=== PATIENT | female | born 1960 | race Caucasian/White ===

== ENCOUNTER 2017-01-29 15:08 | Observation (INO) | payer MEDICARE ==
[~2017-01-29] VITALS: Ht 165.1 cm; Wt 94.1 kg
[~2017-01-29 15:08] MED LIST: ASPI81TA44 PO; ATOR10TA PO; BYSTOLIC10 MG PO; DICY20TA30 PO; DULO30CA2 PO; LOSA1TAB17 PO; ONDA4TAB7 PO; OXYC10TA32 PO; OXYC15TA PO; PANT40TA3 PO; PREG25CA PO; TIZA4TAB PO; VENL75CA PO; VENTOLIN HFA18 GM INH
--- NOTE | 2017-01-29 15:40 | EKG ---
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
--- NOTE | 2017-01-29 16:01 | PHYS DOC ---
Past Medical History Past Medical History: Asthma, COPD, Depression, GERD, High Cholesterol, Hypertension, [place], Other Additional Past Medical Histor: colitis; chronic pain, renetta Past Surgical History: Cholecystectomy, Other Additional Past Surgical Histo: skin grafts Alcohol Use: Occasionally Drug Use: None Adult General Chief Complaint Chief Complaint: SYNCOPE HPI HPI Patient is a 56 year old female presents to the emergency department by POV. Family at bedside states she had told them that she was tired. They state she went and laid down, she had slept for a few hours when she got up and was wandering around the house. Family states she was not making since. The family state that she had laid in bed and fell backwards. Patient does have a history of CAD with ID recently. Patient is very drowsy here in the emergency department. She will awake to name and then go back to sleep. Review of Systems Review of Systems Constitutional: Denies fever or chills. C/o altered mental status [] Eyes: Denies change in visual acuity, redness, or eye pain [] HENT: Denies nasal congestion or sore throat [] Respiratory: Denies cough or shortness of breath [] Cardiovascular: No additional information not addressed in HPI [] GI: Denies abdominal pain, nausea, vomiting, bloody stools or diarrhea [] : Denies dysuria or hematuria [] Musculoskeletal: Denies back pain or joint pain [] Integument: Denies rash or skin lesions [] Neurologic: Denies headache, focal weakness or sensory changes [] Endocrine: Denies polyuria or polydipsia [] Current Medications Current Medications Current Medications Medications (Trade) Dose Ordered Sig/[facility] Start Time Stop Time Status Last Admin Dose Admin Morphine Sulfate 2 mg PRN Q2HR PRN 01/29/17 18:30 01/30/17 18:29 Ondansetron HCl (Zofran) 4 mg PRN Q8HRS PRN 01/29/17 18:30 01/30/17 18:29 Allergies Allergies Allergies Coded Allergies Type Severity Reaction Last Updated Verified No Known Drug Allergies 09/18/15 No Physical Exam Physical Exam Constitutional: Well developed, well nourished, no acute distress, non-toxic appearance. Altered mental status. Patient is arousable to voice and sternal rub HENT: Normocephalic, atraumatic, bilateral external ears normal, oropharynx moist, no oral exudates, nose normal. Bilateral TM normal. Eyes: PERRLA, EOMI, conjunctiva normal, no discharge. [] Neck: Normal range of motion, no tenderness, supple, no stridor. [] Cardiovascular:Heart rate regular rhythm, no murmur [] Lungs & Thorax: Bilateral breath sounds clear to auscultation [] Abdomen: Bowel sounds normal, soft, no tenderness, no masses, no pulsatile masses. [] Skin: Warm, dry, no erythema, no rash. [] Back: No tenderness Extremities: No tenderness, no cyanosis, no clubbing, ROM intact, no edema. [] Neurologic: Alert and oriented X 3, normal motor function, normal sensory function, no focal deficits noted. [] Psychologic: Affect normal, judgement normal, mood normal. [] Current Patient Data Vital Signs Vital Signs Date Time Temp Pulse Resp B/P (MAP) Pulse Ox O2 Delivery O2 Flow Rate FiO2 01/29/17 18:16 64 17 124/56 (78) 94 01/29/17 15:46 Room Air 01/29/17 15:27 98.6 98.6 Lab Values Laboratory Tests Test 01/29/17 15:55 01/29/17 15:58 01/29/17 16:29 Glucose (Fingerstick) 89 mg/dL (70-99) Urine Collection Type Unknown Urine Color Yellow Urine Clarity Clear Urine pH 5.5 Urine Specific [place] 1.020 Urine Protein Negative mg/dL (NEG-TRACE) Urine Glucose (UA) Negative mg/dL (NEG) Urine Ketones (Stick) Negative mg/dL (NEG) Urine Blood Moderate (NEG) Urine Nitrite Negative (NEG) Urine Bilirubin Negative (NEG) Urine Urobilinogen Dipstick 0.2 mg/dL (0.2 mg/dL) Urine Leukocyte Esterase Negative (NEG) Urine RBC 6-10 /HPF (0-2) Urine WBC 1-4 /HPF (0-4) Urine Squamous Epithelial Cells Few /LPF Urine Bacteria 0 /HPF (0-FEW) Urine Hyaline Casts Moderate /HPF Urine Mucus Mod /LPF Urine Opiates Screen Pos (NEG) Urine Methadone Screen Neg (NEG) Urine Barbiturates Neg (NEG) Urine Phencyclidine Screen Neg (NEG) Urine Amphetamine/Methamphetamine Neg (NEG) Urine Benzodiazepines Screen Neg (NEG) Urine Cocaine Screen Neg (NEG) Urine Cannabinoids Screen Neg (NEG) Urine Ethyl Alcohol Pos (NEG) White Blood Count 8.7 x10^3/uL (4.0-11.0) Red Blood Count 4.09 x10^6/uL (3.50-5.40) Hemoglobin 13.2 g/dL (12.0-15.5) Hematocrit 40.2 % (36.0-47.0) Mean Corpuscular Volume 98 fL (79-100) Mean Corpuscular Hemoglobin 32 pg (25-35) Mean Corpuscular Hemoglobin Concent 33 g/dL (31-37) Red Cell Distribution Width 13.1 % (11.5-14.5) Platelet Count 204 x10^3/uL (140-400) Neutrophils (%) (Auto) 61 % (31-73) Lymphocytes (%) (Auto) 30 % (24-48) Monocytes (%) (Auto) 8 % (0-9) Eosinophils (%) (Auto) 1 % (0-3) Basophils (%) (Auto) 1 % (0-3) Neutrophils # (Auto) 5.3 x10^3uL (1.8-7.7) Lymphocytes # (Auto) 2.6 x10^3/uL (1.0-4.8) Monocytes # (Auto) 0.7 x10^3/uL (0.0-1.1) Eosinophils # (Auto) 0.0 x10^3/uL (0.0-0.7) Basophils # (Auto) 0.1 x10^3/uL (0.0-0.2) Sodium Level 146 mmol/L (136-145) H Potassium Level 4.1 mmol/L (3.5-5.1) Chloride Level 109 mmol/L (98-107) H Carbon Dioxide Level 27 mmol/L (21-32) Anion Gap 10 (6-14) Blood Urea Nitrogen 19 mg/dL (7-20) Creatinine 1.0 mg/dL (0.6-1.0) Estimated GFR (Cockcroft-Gault) 56.9 BUN/Creatinine Ratio 19 (6-20) Glucose Level 92 mg/dL (70-99) Calcium Level 9.1 mg/dL (8.5-10.1) Total Bilirubin 0.3 mg/dL (0.2-1.0) Aspartate Amino Transferase (AST) 16 U/L (15-37) Alanine Aminotransferase (ALT) 17 U/L (14-59) Alkaline Phosphatase 92 U/L (46-116) Troponin I Quantitative < 0.017 ng/mL (0.000-0.055) Total Protein 6.9 g/dL (6.4-8.2) Albumin 3.4 g/dL (3.4-5.0) Albumin/Globulin Ratio 1.0 (1.0-1.7) Ethyl Alcohol Level < 10 mg/dL (0-10) Laboratory Tests 01/29/17 16:29 Laboratory Tests 01/29/17 16:29 EKG EKG EKG completed at 1520 with SR noted HR 75 no ectopy noted, no STEMI noted oer Dr Willson[] Radiology/Procedures Radiology/Procedures [] Course & Med Decision Making Course & Med Decision Making Pertinent Labs and Imaging studies reviewed. (See chart for details) Dr Willson is aware the patient's assessment. Dr. Willson will be assisting with patient's care. [] 48-year-old female presenting to the emergency department today just generally fatigued and somnolent over the past few days. No new meds were given or initiated. Vital signs afebrile with a normal heart rate satting well on room air. Patient reports also having tremors and sleepy. On my examination the patient was somnolent. She was sleeping initially. She awoke to my voice and was oriented to person place and time. No neurologic deficits present. Patient was somnolent however. Meeting airway without difficulty. Blood work shows urine ethanol positive with blood ethanol level below 10. EKG unremarkable. Blood work unremarkable. Head CT unremarkable. I ordered a chest x-ray and discussed the case with Dr. Russ who is covering for Dr. Narayan who admits for Dr. Nunez. We decided to keep the patient the hospital for medical monitoring overnight. Observation status. Discussion with the admitting provider. The patient was then admitted for further evaluation workup and care. Neurology's consult placed. Dragon Disclaimer Dragon Disclaimer This electronic medical record was generated, in whole or in part, using a voice recognition dictation system. Departure Departure Impression: Primary Impression: Fatigue Additional Impressions: Malaise Somnolence Disposition: ADMITTED INPATIENT Admitting Physician: Ina Narayan Condition: STABLE Referrals: LOWELL NUNEZ MD (PCP) Problem Qualifiers JENNA MCCAIN APRN January 29, 2017 16:01 JERZY WILLSON MD January 29, 2017 18:40
[2017-01-29 16:08] LABS: BILIRUBIN,URINE NEGATIVE (NEG); GLUCOSE,URINE NEGATIVE (NEG); NITRITE,URINE NEGATIVE (NEG); PH,URINE 5.5; PROTEIN,URINE NEGATIVE (NEG-TRACE); UROBILINOGEN,URINE 0.2 mg/dL (0.2 mg/dL)
[2017-01-29 16:14] LABS: BARBITURATES NEG (NEG); BENZODIAZEPINES NEG (NEG); CANNABINOIDS NEG (NEG); COCAINE NEG (NEG); METHADONE NEG (NEG); OPIATES POS (NEG); PHENCYCLIDINE NEG (NEG)
[2017-01-29 16:21] LABS: BACTERIA,URINE 0 /HPF (0-FEW); SQUAMOUS EPITHELIAL CELL,UR FEW /LPF
[2017-01-29 16:41] LABS: BASO # 0.1 x10^3/uL (0.0-0.2); BASO % 1 % (0-3); EOS % 1 % (0-3); HEMATOCRIT 40.2 % (36.0-47.0); HEMOGLOBIN 13.2 g/dL (12.0-15.5); LYMPH # 2.6 x10^3/uL (1.0-4.8); LYMPH % 30 % (24-48); MEAN CORPUSCULAR HEMOGLOBIN 32 pg (25-35); MEAN CORPUSCULAR HGB CONC 33 g/dL (31-37); MEAN CORPUSCULAR VOLUME 98 fL (79-100); MONO % 8 % (0-9); NEUT % 61 % (31-73); PLATELET COUNT 204 x10^3/uL (140-400); RED BLOOD COUNT 4.09 x10^6/uL (3.50-5.40); RED CELL DISTRIBUTION WIDTH 13.1 % (11.5-14.5); WHITE BLOOD COUNT 8.7 x10^3/uL (4.0-11.0)
[2017-01-29 16:50] LABS: CALCIUM 9.1 mg/dL (8.5-10.1); GFR 56.9; POTASSIUM 4.1 mmol/L (3.5-5.1)
--- NOTE | 2017-01-29 16:51 | RAD ---
EXAM: Head CT without contrast. HISTORY: Altered mental status. TECHNIQUE: Computed tomographic images of the head were obtained without contrast. COMPARISON: 03/26/2008. FINDINGS: There is no acute or subacute extra-axial or intraparenchymal hemorrhage. There is no mass effect or midline shift. There is no hydrocephalus. The mcelroy-white matter differentiation pattern is intact. There is a prominent sulcus within the posterior medial right parietal lobe, stable in appearance. There is a chronic inferior left orbital wall fracture. The paranasal sinuses are clear. No calvarial lesion is seen. IMPRESSION: 1. No acute intracranial finding. 2. Note is made that MRI is more sensitive for acute infarction. PQRS Compliance Statement: One or more of the following individualized dose reduction techniques were utilized for this examination: 1. Automated exposure control 2. Adjustment of the mA and/or kV according to patient size 3. Use of iterative reconstruction technique
[2017-01-29 16:56] LABS: ALBUMIN 3.4 g/dL (3.4-5.0); TOTAL BILIRUBIN 0.3 mg/dL (0.2-1.0); TOTAL PROTEIN 6.9 g/dL (6.4-8.2)
[2017-01-29] MEDS ORDERED: MORPHINE SULFATE 2 MG/ML DISP.SYRIN. IV PRN (18:30)
[2017-01-29] MEDS ORDERED: ONDANSETRON PF 4 MG/2 ML VIAL. IV PRN (18:30)
[2017-01-29 20:45] VITALS: BP 136/78
[2017-01-29 23:02] VITALS: BP 110/61
[2017-01-30] MEDS ORDERED: OXYC15TA PO (01:27)
[2017-01-30] MEDS ORDERED: DULO30CA2 PO (01:27)
[2017-01-30 03:00] VITALS: BP 139/74
[2017-01-30 05:18] LABS: BASO % 1 % (0-3); EOS % 1 % (0-3); HEMATOCRIT 38.3 % (36.0-47.0); HEMOGLOBIN 13.2 g/dL (12.0-15.5); LYMPH # 2.4 x10^3/uL (1.0-4.8); LYMPH % 31 % (24-48); MEAN CORPUSCULAR HEMOGLOBIN 33 pg (25-35); MEAN CORPUSCULAR HGB CONC 34 g/dL (31-37); MEAN CORPUSCULAR VOLUME 97 fL (79-100); MONO % 7 % (0-9); NEUT % 61 % (31-73); PLATELET COUNT 189 x10^3/uL (140-400); RED BLOOD COUNT 3.96 x10^6/uL (3.50-5.40); RED CELL DISTRIBUTION WIDTH 13.1 % (11.5-14.5); WHITE BLOOD COUNT 7.6 x10^3/uL (4.0-11.0)
[2017-01-30 05:42] LABS: CALCIUM 9.2 mg/dL (8.5-10.1); CREATININE 0.9 mg/dL (0.6-1.0); GFR 64.3; POTASSIUM 3.7 mmol/L (3.5-5.1)
[2017-01-30 07:00] VITALS: BP 134/85
[2017-01-30] MEDS ORDERED: NON FORMULARY ITEM (Albuterol Sulfate (Ventolin Hfa Inhaler) 2 PUFF) INH PRN (07:15)
[2017-01-30] MEDS ORDERED: PANTOPRAZOLE 40 MG TABLET.DR. PO SCH (07:30)
[2017-01-30] MEDS ORDERED: ALBUTEROL SULFATE 2.5 MG/3 ML NEBU. NEB PRN (07:30)
[2017-01-30] MEDS ORDERED: oxyCODONE IR 5 MG TABLET PO PRN ×2 (07:45)
[2017-01-30] MEDS ORDERED: ONDANSETRON ODT 4 MG TAB.RAPDIS. PO PRN (07:45)
[2017-01-30] MEDS ORDERED: DICYCLOMINE HCL 10 MG CAPSULE PO PRN (07:45)
[2017-01-30] MEDS ORDERED: ASPIRIN CHEWABLE 81 MG TABLET. PO SCH (08:00)
--- NOTE | 2017-01-30 08:44 | RAD ---
AP portable chest. History: Hypertension, COPD, asthma AP view was taken of the chest. Lungs are free of infiltrates. Heart is normal in size. There is no pleural effusion. Impression: 1. No acute chest disease.
[2017-01-30] MEDS ORDERED: hydroCHLOROthiazide 25 MG TABLET PO SCH (09:00)
[2017-01-30] MEDS ORDERED: DULoxetine HCL 30 MG CAPSULE.DR PO SCH (09:00)
[2017-01-30] MEDS ORDERED: LOSARTAN POTASSIUM 50 MG TABLET. PO SCH (09:00)
[2017-01-30] MEDS ORDERED: GABA-586 PO (10:26)
[2017-01-30] MEDS ORDERED: RAMI1.25 PO (10:26)
[2017-01-30] MEDS ORDERED: DICL100G7 TP (10:26)
[2017-01-30] MEDS ORDERED: METO25TA4 PO (10:26)
[2017-01-30] MEDS ORDERED: OXYC1TAB8 PO (10:26)
[2017-01-30] MEDS ORDERED: oxyCODONE/APAP 7.5/325 1 TAB TABLET PO PRN (10:30)
[2017-01-30 10:40] VITALS: BP 130/92
[2017-01-30] MEDS ORDERED: LISINOPRIL 2.5 MG TABLET PO SCH (11:00)
[2017-01-30] MEDS ORDERED: METOPROLOL TART IMMED RELEASE 25 MG TABLET. PO SCH (11:00)
[2017-01-30 11:25] VITALS: BP 130/92
[2017-01-30] MEDS ORDERED: DICLOFENAC SODIUM 1% TOPICAL GEL 100GM TUBE. TP SCH (13:00)
--- NOTE | 2017-01-30 13:11 | DISCH ---
DISCHARGE INSTRUCTIONS Condition on Discharge Condition on Discharge: Stable Activity After Discharge Activity Instructions for Disc: No restrictions Diet after Discharge Diet after Discharge: Regular Follow-Up Follow up with: MELISA Sanchez MD January 30, 2017 13:11
--- NOTE | 2017-01-30 13:11 | PDOC ---
Provider Note Provider Note [id number] MELISA HOFFMAN MD January 30, 2017 13:11
--- NOTE | 2017-01-30 13:24 | SSS ---
ADMIT DATE: 01/30/2017 HOSPITAL SUMMARY: A 56-year-old white female who used to see Dr. Narayan, but now she has a provider in [place] for "chronic pain management." She states that she took two gabapentin 300 mg on the day of admission because of increasing pain and became tired and sleepy and came in. ER evaluation was unremarkable. Laboratory studies were normal. CT scan of the head and lab studies were unremarkable, and urine drug screen showed opiates and small amount of alcohol, but otherwise was negative. She is more awake and alert now and is comfortable to be followed as an outpatient now that the somnolence from the gabapentin has worn off. FINAL DIAGNOSIS: Gabapentin-induced somnolence. OPERATIONS, PROCEDURES, COMPLICATIONS, AND CONSULTATIONS: None. DISPOSITION: All home medications remain the same as prescribed by her primary care provider. She will see that doctor and follow up as scheduled. Pain medications [facility] from [facility], and no new medications were prescribed. PROGNOSIS: Good. MELISA HOFFMAN MD DR: JOEY/karan JOB#: [id number] / [id number]
[2017-01-30] MEDS ORDERED: GABAPENTIN 300 MG CAPSULE. PO SCH (14:00)
== END 2017-01-30 13:58 | disposition home or self-care (01) ==
LOC: ER 15:08 → 5 SOUTH 18:35
PROVIDERS: ADMIT Internal Medicine; ATTEND Internal Medicine
DX: R40.0 Somnolence (principal); T42.6X5A Adverse effect of other antiepileptic and sedative-hypnotic drugs, initial encounter; F11.90 Opioid use, unspecified, uncomplicated; G89.29 Other chronic pain; J44.9 Chronic obstructive pulmonary disease, unspecified; F32.9 Major depressive disorder, single episode, unspecified; K21.9 Gastro-esophageal reflux disease without esophagitis; E78.00 Pure hypercholesterolemia, unspecified; I10 Essential (primary) hypertension; I25.2 Old myocardial infarction; G47.33 Obstructive sleep apnea (adult) (pediatric); I25.10 Atherosclerotic heart disease of native coronary artery without angina pectoris; Z90.49 Acquired absence of other specified parts of digestive tract; Z94.5 Skin transplant status; Z72.89 Other problems related to lifestyle; Y92.89 Other specified places as the place of occurrence of the external cause
CPT/HCPCS: 36415; 70450; 71010; 80048; 80053; 81001; 82962; 84484; 85027; 93005; 94760; 96374; 99285; G0378; G0480; G0481; J2270; G0379

== ENCOUNTER 2017-01-31 21:21 | Emergency (ER) | payer MEDICARE ==
[~2017-01-31] VITALS: Ht 162.6 cm; Wt 93.9 kg
[~2017-01-31 21:21] MED LIST changes: +DICL100G18 TP; +GABA-586 PO; +METO25TA4 PO; -OXYC10TA32 PO; +OXYC10TA45 PO; +OXYC1TAB8 PO; +RAMI1.25 PO
[2017-01-31 21:55] LABS: BASO # 0.1 x10^3/uL (0.0-0.2); BASO % 1 % (0-3); EOS % 1 % (0-3); HEMOGLOBIN 12.9 g/dL (12.0-15.5); LYMPH # 3.3 x10^3/uL (1.0-4.8); LYMPH % 42 % (24-48); MEAN CORPUSCULAR HEMOGLOBIN 33 pg (25-35); MEAN CORPUSCULAR HGB CONC 33 g/dL (31-37); MEAN CORPUSCULAR VOLUME 99 fL (79-100); MONO % 8 % (0-9); NEUT % 48 % (31-73); PLATELET COUNT 180 x10^3/uL (140-400); RED BLOOD COUNT 3.94 x10^6/uL (3.50-5.40); RED CELL DISTRIBUTION WIDTH 12.8 % (11.5-14.5); WHITE BLOOD COUNT 7.7 x10^3/uL (4.0-11.0)
[2017-01-31 22:07] LABS: INR 1.1 (0.8-1.1); PROTHROMBIN TIME PATIENT 13.5 SEC (11.7-14.0)
[2017-01-31 22:12] LABS: CALCIUM 8.7 mg/dL (8.5-10.1); CREATININE 1.1 mg/dL (0.6-1.0); POTASSIUM 3.2 mmol/L (3.5-5.1)
[2017-01-31 22:13] LABS: BARBITURATES NEG (NEG); BENZODIAZEPINES NEG (NEG); CANNABINOIDS NEG (NEG); COCAINE NEG (NEG); METHADONE NEG (NEG); OPIATES POS (NEG); PHENCYCLIDINE NEG (NEG)
[2017-01-31 22:18] LABS: ALBUMIN 3.3 g/dL (3.4-5.0); DIRECT BILIRUBIN 0.1 mg/dL (0.0-0.2); TOTAL BILIRUBIN 0.3 mg/dL (0.2-1.0); TOTAL PROTEIN 7.1 g/dL (6.4-8.2)
--- NOTE | 2017-01-31 22:29 | PHYS DOC ---
Past Medical History Past Medical History: Asthma, COPD, Depression, GERD, High Cholesterol, Hypertension, [place], Other Additional Past Medical Histor: colitis; chronic pain, renetta Past Surgical History: Cholecystectomy, Other Additional Past Surgical Histo: skin grafts Alcohol Use: Occasionally Drug Use: None Adult General Chief Complaint Chief Complaint: DYSPNEA/RESPIRATOY DISTRESS [facility] HPI Patient is a 56 year old female who presents by EMS after son called because she was nonresponsive. EMS found alcohol and narcotics in the room as well as her chronic medications including gabapentin. They gave her narcan 2mg IV and she woke up. She notes drinking alcohol because does not have pain control. She notes seeing a chronic pain specialist and they last prescribed 7.5/325 percocet, #90 tab on 01/13/17 as 1pill q8hr prn. States she was placed on gabapentin in an effort to remove narcotics after she was told she violated her pain contract due to possible K2 use. She was taking 15mg percocet prior. She states she has not taken narcotics in the past week and has been taking gabapentin and alcohol. She denies complaints at this time other than being slightly tired. She denies SI, HI, or hallucinations. States took 1 gabapentin this a.m. and 2 gabapentin this afternoon. Admits to alcohol use this afternoon. Review of Systems Review of Systems Constitutional: Denies fever or chills [] Eyes: Denies change in visual acuity, redness, or eye pain [] HENT: Denies nasal congestion or sore throat [] Respiratory: Denies cough or shortness of breath [] Cardiovascular: No additional information not addressed in HPI [] GI: Denies abdominal pain, nausea, vomiting, bloody stools or diarrhea [] : Denies dysuria or hematuria [] Musculoskeletal: Denies back pain or joint pain [] Integument: Denies rash or skin lesions [] Neurologic: Denies headache, focal weakness or sensory changes [] Endocrine: Denies polyuria or polydipsia [] Allergies Allergies Allergies Coded Allergies Type Severity Reaction Last Updated Verified No Known Drug Allergies 09/18/15 No Physical Exam Physical Exam Constitutional: Well developed, well nourished, no acute distress, non-toxic appearance. [] HENT: Normocephalic, atraumatic, bilateral external ears normal, oropharynx moist, nose normal. [] Eyes: PERRLA, EOMI. [] Neck: Normal range of motion, supple. [] Cardiovascular:Heart rate regular rhythm [] Lungs & Thorax: Bilateral breath sounds clear to auscultation [] Abdomen: Bowel sounds normal, soft, no tenderness. [] Skin: Warm, dry, no erythema, no rash. [] Back: No tenderness, no CVA tenderness. [] Extremities: No tenderness, ROM intact, no edema. [] Neurologic: Sleepy but easily rouses to voice, oriented X 3, normal motor function, normal sensory function, no focal deficits noted. [] Psychologic: Affect normal, judgement normal, mood normal. [] Current Patient Data Vital Signs Vital Signs Date Time Temp Pulse Resp B/P (MAP) Pulse Ox O2 Delivery O2 Flow Rate FiO2 01/31/17 21:39 98.0 70 26 95/69 (78) 100 Room Air 98.0 Lab Values Laboratory Tests Test 01/31/17 21:45 01/31/17 21:58 01/31/17 23:05 White Blood Count 7.7 x10^3/uL (4.0-11.0) Red Blood Count 3.94 x10^6/uL (3.50-5.40) Hemoglobin 12.9 g/dL (12.0-15.5) Hematocrit 39.0 % (36.0-47.0) Mean Corpuscular Volume 99 fL (79-100) Mean Corpuscular Hemoglobin 33 pg (25-35) Mean Corpuscular Hemoglobin Concent 33 g/dL (31-37) Red Cell Distribution Width 12.8 % (11.5-14.5) Platelet Count 180 x10^3/uL (140-400) Neutrophils (%) (Auto) 48 % (31-73) Lymphocytes (%) (Auto) 42 % (24-48) Monocytes (%) (Auto) 8 % (0-9) Eosinophils (%) (Auto) 1 % (0-3) Basophils (%) (Auto) 1 % (0-3) Neutrophils # (Auto) 3.7 x10^3uL (1.8-7.7) Lymphocytes # (Auto) 3.3 x10^3/uL (1.0-4.8) Monocytes # (Auto) 0.6 x10^3/uL (0.0-1.1) Eosinophils # (Auto) 0.1 x10^3/uL (0.0-0.7) Basophils # (Auto) 0.1 x10^3/uL (0.0-0.2) Prothrombin Time 13.5 SEC (11.7-14.0) Prothrombin Time INR 1.1 (0.8-1.1) Sodium Level 142 mmol/L (136-145) Potassium Level 3.2 mmol/L (3.5-5.1) L Chloride Level 106 mmol/L (98-107) Carbon Dioxide Level 22 mmol/L (21-32) Anion Gap 14 (6-14) Blood Urea Nitrogen 18 mg/dL (7-20) Creatinine 1.1 mg/dL (0.6-1.0) H Estimated GFR (Cockcroft-Gault) 51.0 Glucose Level 74 mg/dL (70-99) Calcium Level 8.7 mg/dL (8.5-10.1) Total Bilirubin 0.3 mg/dL (0.2-1.0) Direct Bilirubin 0.1 mg/dL (0.0-0.2) Aspartate Amino Transferase (AST) 54 U/L (15-37) H Alanine Aminotransferase (ALT) 31 U/L (14-59) Alkaline Phosphatase 101 U/L (46-116) Total Protein 7.1 g/dL (6.4-8.2) Albumin 3.3 g/dL (3.4-5.0) L Acetaminophen Level 3.3 mcg/ml (10-30) L < 2 mcg/ml (10-30) L Acetaminophen Last Dose Date Acetaminophen Last Dose Time Ethyl Alcohol Level 17 mg/dL (0-10) H Urine Opiates Screen Pos (NEG) Urine Methadone Screen Neg (NEG) Urine Barbiturates Neg (NEG) Urine Phencyclidine Screen Neg (NEG) Urine Amphetamine/Methamphetamine Neg (NEG) Urine Benzodiazepines Screen Neg (NEG) Urine Cocaine Screen Neg (NEG) Urine Cannabinoids Screen Neg (NEG) Urine Ethyl Alcohol Pos (NEG) Laboratory Tests 01/31/17 21:45 Laboratory Tests 01/31/17 21:45 EKG EKG EKG as interpreted by me as normal sinus rhythm, rate 68, no ST-T changes, normal intervals, no ectopy Course & Med Decision Making Course & Med Decision Making Pertinent Labs and Imaging studies reviewed. (See chart for details) She was observed here and maintained normal mental status with no complaints. Laboratory evaluation is unremarkable other than positive opiates on UDS and minimally positive acetaminophen level. One hour acetaminophen trend is down. Suspect she took a nonlethal dose of Percocet today. Also suspect she is becoming somnolent with combination of gabapentin, Percocet, and alcohol. Encouraged her to decrease her gabapentin dose and follow-up with her primary care doctor closely. She is and returned with a steady gait. She is tolerating oral intake. Return precautions given. She understands and agrees with plan. Dragon Disclaimer Dragon Disclaimer This electronic medical record was generated, in whole or in part, using a voice recognition dictation system. Departure Departure Impression: Primary Impression: Drug overdose, multiple drugs Disposition: ADMITTED INPATIENT Condition: STABLE Referrals: NO PCP (PCP) Patient Instructions: Medical Screening Exam Additional Instructions: Decrease the amount of gabapentin you take. Follow up with your primary care doctor within 3 days. Return for any concerns. Problem Qualifiers Primary Impression: Drug overdose, multiple drugs Encounter type: initial encounter Injury intent: accidental or unintentional Qualified Codes: T50.901A - Poisoning by unspecified drugs, medicaments and biological substances, accidental (unintentional), initial encounter Christi LEONARD MD January 31, 2017 22:29
[2017-01-31 23:42] VITALS: BP 115/66
--- NOTE | 2017-02-01 06:41 | EKG ---
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
== END 2017-01-31 23:58 | disposition other institution (70) ==
LOC: ER 21:21
DX: T42.6X1A Poisoning by other antiepileptic and sedative-hypnotic drugs, accidental (unintentional), initial encounter (principal); T40.601A Poisoning by unspecified narcotics, accidental (unintentional), initial encounter; T39.1X1A Poisoning by 4-Aminophenol derivatives, accidental (unintentional), initial encounter; T40.7X1A Poisoning by cannabis (derivatives), accidental (unintentional), initial encounter; T51.91XA Toxic effect of unspecified alcohol, accidental (unintentional), initial encounter; J44.9 Chronic obstructive pulmonary disease, unspecified; F32.9 Major depressive disorder, single episode, unspecified; K21.9 Gastro-esophageal reflux disease without esophagitis; E78.00 Pure hypercholesterolemia, unspecified; I10 Essential (primary) hypertension; I25.2 Old myocardial infarction; G89.29 Other chronic pain; G47.33 Obstructive sleep apnea (adult) (pediatric); Z90.49 Acquired absence of other specified parts of digestive tract; Y92.89 Other specified places as the place of occurrence of the external cause
CPT/HCPCS: 36415; 80048; 80076; 80305; 85027; 85610; 93005; 99285; G0480; P9612; 80320; G0481